=== PATIENT | male | born 1970 | race Caucasian/White ===

== ENCOUNTER → 2016-10-12 | Outpatient (CLI) | payer BC ==
--- NOTE | 2016-10-12 09:50 | RAD ---
HISTORY: Headache, sinus pain Study: Sinuses three view Comparison: None Findings: The frontal, ethmoid, sphenoid, and maxillary sinuses are clear. IMPRESSION: Clear paranasal sinuses Reported By:
== END ==
LOC: RAD 09:07
PROVIDERS: ATTEND Nurse Practitioner Family
DX: J01.80 Other acute sinusitis (principal)
CPT/HCPCS: 70220